=== PATIENT | male | born 1930 | race Two or more races ===

== ENCOUNTER 2020-09-21 10:21 | Inpatient (IN) | payer MEDICARE, OTHER ==
[~2020-09-21] VITALS: Ht 162.6 cm; Wt 72.6 kg
[~2020-09-21 10:21] MED LIST: ASPI-1497 PO; LEVO500T89 MT
[2020-09-21] MEDS ORDERED: ASPIRIN 81MG TABLET PO ONE (10:45)
[2020-09-21 11:05] LABS: BASOPHILS % 0.7 % (0.0-2.0); EOSINOPHILS % 3.6 % (0.0-5.0); HEMATOCRIT. 36.5 % (42.0-52.0); HEMOGLOBIN. 12.6 g/dL (14.0-18.0); LYMPHOCYTES % 22.9 % (20.0-50.0); MEAN CORPUSCULAR HEMOGLOBIN 29.8 pg (28.0-32.0); MEAN CORPUSCULAR VOLUME 86.5 fL (80.0-94.0); MEAN PLATELET VOLUME 8.2 fl (7.4-10.4); MONOCYTES % 5.7 % (2.0-8.0); NEUTROPHILS % 67.1 % (40.0-76.0); PLATELET 133 x1000/uL (130-400); RED BLOOD CELL COUNT 4.22 mill/uL (4.7-6.1); RED CELL DISTRIBUTION WIDTH 12.9 % (11.6-14.6)
[2020-09-21 11:11] LABS: CHLORIDE 102 mEq/L (98-107)
[2020-09-22 01:00] VITALS: BP 98/56
[2020-09-22] MEDS ORDERED: MELO-104 PO (03:47)
[2020-09-22] MEDS ORDERED: CLOP75TA33 MT (03:47)
[2020-09-22 04:00] VITALS: BP 123/58
[2020-09-22] MEDS ORDERED: DEXTROSE 50% WATER 50ML SYRINGE IV PRN (05:00)
[2020-09-22] MEDS ORDERED: MAGNESIUM/ALUMINUM HYDROXIDE/SIMETHICONE 30ML UDC PO PRN (05:00)
[2020-09-22] MEDS ORDERED: HYDROCODONE/ACETAMINOPHEN 5/325MG TABLET PO PRN (05:00)
[2020-09-22] MEDS ORDERED: ACETAMINOPHEN 325MG TABLET PO PRN (05:00)
[2020-09-22] MEDS ORDERED: CLONIDINE 0.1MG TABLET PO SCH (05:00)
[2020-09-22] MEDS ORDERED: CLONIDINE 0.1MG TABLET PO PRN (05:15)
[2020-09-22] MEDS: HEPARIN 5000 UNITS/ML VIAL SUBCUT SCH ×3 (05:35→21:30)
[2020-09-22 05:44] LABS: *AMPHETAMINES SCREEN URINE NEGATIVE (NEGATIVE); *BARBITURATES SCREEN URINE NEGATIVE (NEGATIVE); *BENZODIAZEPINES SCREEN URINE NEGATIVE (NEGATIVE); *COCAINE SCREEN URINE NEGATIVE (NEGATIVE); METHADONE URINE SCREEN NEGATIVE (NEGATIVE); OPIATES URINE SCREEN NEGATIVE (NEGATIVE)
[2020-09-22 05:45] LABS: CANNABINOID URINE SCREEN NEGATIVE (NEGATIVE); PHENCYCLIDINE URINE SCREEN NEGATIVE (NEGATIVE)
[2020-09-22] MEDS: BLOOD SUGAR DIAGNOSTIC STRIP TEST SCH ×4 (06:35→21:19)
[2020-09-22 07:39] LABS: CHLORIDE 104 mEq/L (98-107)
[2020-09-22 07:47] LABS: BASOPHILS % 0.7 % (0.0-2.0); EOSINOPHILS % 3.9 % (0.0-5.0); HEMATOCRIT. 40.8 % (42.0-52.0); HEMOGLOBIN. 13.9 g/dL (14.0-18.0); LDL CHOLESTEROL 126 mg/dL (5-100); MEAN CORPUSCULAR HEMOGLOBIN 29.5 pg (28.0-32.0); MEAN CORPUSCULAR VOLUME 86.7 fL (80.0-94.0); MEAN PLATELET VOLUME 8.2 fl (7.4-10.4); MONOCYTES % 6.6 % (2.0-8.0); NEUTROPHILS % 68.8 % (40.0-76.0); PLATELET 141 x1000/uL (130-400)
[2020-09-22 07:48] LABS: HDL CHOLESTEROL 37 mg/dL (40-59)
[2020-09-22 07:51] LABS: CREATINE KINASE 43 IU/L (39-308)
[2020-09-22 07:53] LABS: CREATINE KINASE MB FRACTION 1.9 ng/mL (0.5-3.6)
[2020-09-22 08:00] VITALS: BP 134/68
[2020-09-22] MEDS ORDERED: NALOXONE HCL 0.4MG/ML VIAL IV PRN (08:15)
[2020-09-22] MEDS: ASPIRIN 81MG TABLET PO SCH (08:41)
[2020-09-22] MEDS: INSULIN LISPRO 100 UNITS/ML SUBCUT SCH ×4 (08:42→21:29)
[2020-09-22 12:00] VITALS: BP 105/40
[2020-09-22 16:00] VITALS: BP 101/44
[2020-09-22] MEDS: CLOPIDOGREL 75MG TABLET PO SCH (16:53)
[2020-09-22] MEDS: DOCUSATE SODIUM 100MG CAPSULE PO SCH (16:53)
[2020-09-22 18:42] LABS: CREATINE KINASE 54 IU/L (39-308)
[2020-09-22 18:45] LABS: CREATINE KINASE MB FRACTION 1.9 ng/mL (0.5-3.6)
[2020-09-22 20:00] VITALS: BP 103/36
[2020-09-22] MEDS: FAMOTIDINE 20MG/2ML VIAL IV SCH (21:29)
[2020-09-22] MEDS: ATORVASTATIN CALCIUM 20MG TABLET PO SCH (21:29)
[2020-09-23] VITALS (7 sets, daily range): BP systolic 102–132; BP diastolic 43–87
[2020-09-23] MEDS: HEPARIN 5000 UNITS/ML VIAL SUBCUT SCH ×3 (05:35→20:21)
[2020-09-23] MEDS: BLOOD SUGAR DIAGNOSTIC STRIP TEST SCH ×4 (06:39→20:21)
[2020-09-23] MEDS: ASPIRIN 81MG TABLET PO SCH (08:41)
[2020-09-23] MEDS: CLOPIDOGREL 75MG TABLET PO SCH (08:41)
[2020-09-23] MEDS: DOCUSATE SODIUM 100MG CAPSULE PO SCH ×2 (08:41→18:22)
[2020-09-23] MEDS: FAMOTIDINE 20MG/2ML VIAL IV SCH (08:41)
[2020-09-23] MEDS: INSULIN LISPRO 100 UNITS/ML SUBCUT SCH ×4 (08:42→20:21)
[2020-09-23] MEDS ORDERED: REGADENOSON 0.4 MG/5 ML IV ONE (13:00)
[2020-09-23] MEDS: ATORVASTATIN CALCIUM 20MG TABLET PO SCH (20:21)
[2020-09-24] VITALS: BP 120/65
[2020-09-24] MEDS: HEPARIN 5000 UNITS/ML VIAL SUBCUT SCH ×3 (05:04→23:53)
[2020-09-24] MEDS: INSULIN LISPRO 100 UNITS/ML SUBCUT SCH ×4 (05:04→20:48)
[2020-09-24] MEDS: BLOOD SUGAR DIAGNOSTIC STRIP TEST SCH ×4 (05:04→20:44)
[2020-09-24 07:15] LABS: BASOPHILS % 0.4 % (0.0-2.0); EOSINOPHILS % 2.3 % (0.0-5.0); HEMATOCRIT. 39.4 % (42.0-52.0); HEMOGLOBIN. 13.2 g/dL (14.0-18.0); LYMPHOCYTES % 21.3 % (20.0-50.0); MEAN CORPUSCULAR HEMOGLOBIN 29.1 pg (28.0-32.0); MEAN CORPUSCULAR VOLUME 86.5 fL (80.0-94.0); MEAN PLATELET VOLUME 8.5 fl (7.4-10.4); MONOCYTES % 10.7 % (2.0-8.0); NEUTROPHILS % 65.3 % (40.0-76.0); PLATELET 141 x1000/uL (130-400); RED BLOOD CELL COUNT 4.56 mill/uL (4.7-6.1); RED CELL DISTRIBUTION WIDTH 12.7 % (11.6-14.6)
[2020-09-24 07:27] LABS: CHLORIDE 103 mEq/L (98-107)
[2020-09-24] MEDS: DOCUSATE SODIUM 100MG CAPSULE PO SCH ×2 (09:41→17:32)
[2020-09-24] MEDS: FAMOTIDINE 20MG TABLET PO SCH (09:41)
[2020-09-24] MEDS: CLOPIDOGREL 75MG TABLET PO SCH (09:41)
[2020-09-24] MEDS: ASPIRIN 81MG TABLET PO SCH (09:41)
[2020-09-24 12:00] VITALS: BP 111/51
[2020-09-24] MEDS ORDERED: REGADENOSON 0.4 MG/5 ML IV ONE (13:55)
[2020-09-24 16:00] VITALS: BP 114/54
[2020-09-24] MEDS ORDERED: FAMO20TA8 MT (16:09)
[2020-09-24] MEDS ORDERED: ATOR20TA PO (16:09)
[2020-09-24 18:26] VITALS: BP 114/54
[2020-09-24 20:00] VITALS: BP 110/50
[2020-09-24] MEDS: ATORVASTATIN CALCIUM 20MG TABLET PO SCH (20:43)
[2020-09-25] VITALS: BP 102/45
[2020-09-25 04:00] VITALS: BP 119/58
[2020-09-25] MEDS: HEPARIN 5000 UNITS/ML VIAL SUBCUT SCH (05:54)
[2020-09-25] MEDS: BLOOD SUGAR DIAGNOSTIC STRIP TEST SCH ×2 (06:49→13:10)
[2020-09-25 08:00] VITALS: BP 102/53
[2020-09-25] MEDS: CLOPIDOGREL 75MG TABLET PO SCH (09:14)
[2020-09-25] MEDS: FAMOTIDINE 20MG TABLET PO SCH (09:14)
[2020-09-25] MEDS: ASPIRIN 81MG TABLET PO SCH (09:14)
[2020-09-25] MEDS: DOCUSATE SODIUM 100MG CAPSULE PO SCH (09:14)
[2020-09-25] MEDS: INSULIN LISPRO 100 UNITS/ML SUBCUT SCH ×2 (09:15→13:29)
[2020-09-25 12:00] VITALS: BP 95/49
[2020-09-25 13:11] VITALS: BP 95/49
== END 2020-09-25 15:31 | disposition home or self-care (01) | DRG 205 ==
LOC: ER 10:21 → 6WST 17:49 → EDBEDREQ 17:58 → ENRESERV 20:39
PROVIDERS: ADMIT Internal Medicine; ATTEND Internal Medicine
DX: M94.0 Chondrocostal junction syndrome [Tietze] (principal); E11.00 Type 2 diabetes mellitus with hyperosmolarity without nonketotic hyperglycemic-hyperosmolar coma (NKHHC); E87.1 Hypo-osmolality and hyponatremia; E11.9 Type 2 diabetes mellitus without complications; E78.5 Hyperlipidemia, unspecified; I10 Essential (primary) hypertension; I25.10 Atherosclerotic heart disease of native coronary artery without angina pectoris; Z79.899 Other long term (current) drug therapy; Z95.0 Presence of cardiac pacemaker; Z95.5 Presence of coronary angioplasty implant and graft
CPT/HCPCS: 36415; 71045; 78452; 80048; 80053; 80061; 80305; 82550; 82553; 82962; 83036; 83880; 84443; 84484; 85025; 93005; 93017; 93306; 93880; 99285; A9500; J1644; J1815; J2785; J3490

== ENCOUNTER 2020-10-07 10:47 | Emergency (ER) | payer MEDICARE, OTHER ==
[~2020-10-07] VITALS: Ht 162.6 cm; Wt 68.0 kg
[~2020-10-07 10:47] MED LIST changes: +ATOR20TA PO; +CLOP75TA33 MT; +FAMO20TA8 MT; -LEVO500T89 MT; +MELO-104 PO
[2020-10-07] MEDS ORDERED: SODIUM CHLORIDE 0.9% 1,000 ML IV ONE (12:15)
[2020-10-07] MEDS ORDERED: INSULIN REGULAR (HUMULIN R) 300UNITS/3ML VIAL SUBCUT ONE (12:15)
[2020-10-07] MEDS ORDERED: METFORMIN HCL 500MG TABLET PO SCH (12:30)
[2020-10-07 12:35] LABS: BASOPHILS % 0.9 % (0.0-2.0); EOSINOPHILS % 2.6 % (0.0-5.0); HEMATOCRIT. 36.3 % (42.0-52.0); HEMOGLOBIN. 12.1 g/dL (14.0-18.0); LYMPHOCYTES % 21.7 % (20.0-50.0); MEAN CORPUSCULAR VOLUME 86.8 fL (80.0-94.0); MEAN PLATELET VOLUME 8.4 fl (7.4-10.4); MONOCYTES % 5.5 % (2.0-8.0); NEUTROPHILS % 69.3 % (40.0-76.0); PLATELET 135 x1000/uL (130-400); RED BLOOD CELL COUNT 4.18 mill/uL (4.7-6.1)
[2020-10-07 12:53] LABS: CHLORIDE 105 mEq/L (98-107)
[2020-10-07 12:58] LABS: BETA HYDROXYBUTYRATE 0.1 mMol/L (0.0-0.3)
[2020-10-07] MEDS ORDERED: METF-416 MT (13:14)
[2020-10-07 13:55] VITALS: BP 101/58
== END 2020-10-07 14:17 | disposition home or self-care (01) ==
LOC: ER 10:47
DX: E11.65 Type 2 diabetes mellitus with hyperglycemia (principal); Z95.0 Presence of cardiac pacemaker; Z79.899 Other long term (current) drug therapy
CPT/HCPCS: 36415; 80048; 82010; 85025; 96360; 96372; 99283; J1815; J7030

== ENCOUNTER 2021-03-15 11:53 | Emergency (ER) | payer OTHER, MEDICAID ==
[~2021-03-15] VITALS: Ht 170.2 cm; Wt 65.0 kg
[~2021-03-15 11:53] MED LIST changes: +METF-416 MT
[2021-03-15] MEDS ORDERED: ACETAMINOPHEN 325MG TABLET PO STA (12:11)
[2021-03-15 12:56] LABS: BASOPHILS % 0.4 % (0.0-2.0); EOSINOPHILS % 0.8 % (0.0-5.0); HEMATOCRIT. 38.6 % (42.0-52.0); HEMOGLOBIN. 12.7 g/dL (14.0-18.0); LYMPHOCYTES % 10.3 % (20.0-50.0); MEAN CORPUSCULAR HEMOGLOBIN 28.5 pg (28.0-32.0); MEAN CORPUSCULAR VOLUME 86.8 fL (80.0-94.0); MEAN PLATELET VOLUME 8.4 fl (7.4-10.4); MONOCYTES % 12.7 % (2.0-8.0); NEUTROPHILS % 75.8 % (40.0-76.0); PLATELET 115 x1000/uL (130-400); RED BLOOD CELL COUNT 4.45 mill/uL (4.7-6.1); RED CELL DISTRIBUTION WIDTH 13.4 % (11.6-14.6)
[2021-03-15 13:09] LABS: BETA HYDROXYBUTYRATE 0.3 mMol/L (0.0-0.3)
[2021-03-15 16:08] LABS: CHLORIDE 100 mEq/L (98-107)
[2021-03-15] MEDS ORDERED: METF-416 MT (16:53)
[2021-03-15] MEDS ORDERED: FLOV44 INH (16:53)
[2021-03-15 22:05] VITALS: BP 129/89
== END 2021-03-15 22:27 | disposition home or self-care (01) ==
LOC: ER 11:53
DX: U07.1 COVID-19 (principal); E11.9 Type 2 diabetes mellitus without complications; Z91.14 Patient's other noncompliance with medication regimen; Z79.82 Long term (current) use of aspirin
CPT/HCPCS: 36415; 71045; 80048; 82010; 82962; 84484; 85025; 87426; 99284